=== PATIENT | male | born 1955 | race Caucasian/White ===

== ENCOUNTER → 2016-08-18 | Outpatient (CLI) | payer OTHER ==
[~2016-08-18] MED LIST: BACTRIM DS TABL1 TA1 PO; KEFLEX500 MG PO; LORTAB 7.5-5001 TAB PO; LOTREL 5/10 MG1 CAP PO
--- NOTE | ~2016-08-18 | EKG ---
PATIENT: ELENI MUNROE UNIT #: [id number] Ventricular Rate: 45 BPM Atrial Rate: 45 BPM P-R Interval: 156 ms QRS Duration: 94 ms Q-T Interval: 448 ms QTC Calculation(Bezet): 387 ms P [place]: 7 degrees Calculated R [place]: 8 degrees Calculated T [place]: 21 degrees Diagnosis Line: Marked sinus bradycardia Diagnosis Line: Abnormal ECG Diagnosis Line: No previous ECGs available Diagnosis Line: Confirmed by ANJELICA GARCIA MD ([id number]) on 08/19/2016 Diagnosis Line: 9:36:59 AM INTERPRETING MD: RADHA ZEPEDA
--- NOTE | ~2016-08-18 | EKG ---
PATIENT: ELENI MUNROE UNIT #: [id number] Ventricular Rate: 45 BPM Atrial Rate: 45 BPM P-R Interval: 156 ms QRS Duration: 94 ms Q-T Interval: 448 ms QTC Calculation(Bezet): 387 ms P [place]: 7 degrees Calculated R [place]: 8 degrees Calculated T [place]: 21 degrees Diagnosis Line: Marked sinus bradycardia Diagnosis Line: Normal ECG Diagnosis Line: No previous ECGs available Diagnosis Line: Reconfirmed by ANJELICA GARCIA MD ([id number]) on 08/19/2016 Diagnosis Line: 9:37:12 AM INTERPRETING MD: RADHA ZEPEDA
[2016-08-18 12:28] LABS: HEMATOCRIT 43.5 % (38.0-50.0); MEAN CELL VOLUME 88.9 FL (83-96); MEAN CORPUSCULAR HEMOGLOBIN 30.6 PG (28-34); MEAN CORPUSCULAR HGB CONC 34.4 g/dL (30-36); MEAN PLATELET VOLUME 8.9 FL (6.5-11.5); RED BLOOD COUNT 4.89 X10e (3.90-5.60); RED CELL DISTRIBUTION WIDTH 13.3 % (11.0-15.5); WHITE BLOOD COUNT 6.3 X10e3 (4.0-10.5)
[2016-08-18 12:53] LABS: CALCIUM SERUM 8.9 mg/dL (8.4-10.2); GLOM FILT RATE Estimated 80.3 mL/min (>60); POTASSIUM 4.5 mmol/L (3.5-5.1)
== END | disposition home or self-care (01) ==
LOC: SLAB 11:46
PROVIDERS: Orthopaedic Surgery
DX: Z01.818 Encounter for other preprocedural examination (principal)
CPT/HCPCS: 36415; 80048; 85027; 93005